=== PATIENT | male | born 1985 | race Two or more races ===

== ENCOUNTER 2022-02-12 01:05 | Emergency (ER) | payer OTHER ==
[~2022-02-12] VITALS: Ht 167.6 cm; Wt 54.4 kg
== END 2022-02-12 09:45 | disposition home or self-care (01) ==
LOC: ER 01:05 → EMR PED 01:05 → ER 02:01
DX: K52.9 Noninfective gastroenteritis and colitis, unspecified (principal); E86.0 Dehydration